=== PATIENT | female | born 1970 | race Caucasian/White ===

== ENCOUNTER → 2017-07-05 | Outpatient (CLI) | payer OTHER, BC ==
[~2017-07-05] MED LIST: ASPIRIN ADULT L81 M1 PO; KROGER NIC21 MG/24 H TD; MOTRIN800 MG PO; NITROSTAT0.4 MG SL; NKHM; PERCOCET 325 MG1 TA2 PO; SIMVASTATIN20 MG PO
== END | disposition home or self-care (01) ==
LOC: MAMMO 15:30
DX: Z12.31 Encounter for screening mammogram for malignant neoplasm of breast (principal)

== ENCOUNTER → 2018-06-13 | Outpatient (CLI) | payer OTHER, BC | END | disposition home or self-care (01) | LOC: MAMMO 15:25 | DX: Z12.31 Encounter for screening mammogram for malignant neoplasm of breast (principal) ==

== ENCOUNTER → 2019-12-31 | Outpatient (CLI) | payer OTHER | END | disposition home or self-care (01) | LOC: MAMMO 14:05 | PROVIDERS: ATTEND Nurse Practitioner Family | DX: Z12.31 Encounter for screening mammogram for malignant neoplasm of breast (principal) ==

== ENCOUNTER → 2020-11-28 | Outpatient (CLI) | payer OTHER ==
[~2020-11-28] MED LIST changes: +PRALUENT P150 MG/1 M SQ
== END | disposition home or self-care (01) ==
LOC: CARD 00:01
PROVIDERS: ATTEND Nurse Practitioner Family
DX: I20.8 Other forms of angina pectoris (principal)

== ENCOUNTER → 2022-02-23 | Outpatient (CLI) | payer OTHER | END | disposition home or self-care (01) | LOC: MAMMO 12:25 | PROVIDERS: ATTEND Internal Medicine | DX: N63.15 Unspecified lump in the right breast, overlapping quadrants (principal); N60.01 Solitary cyst of right breast; N63.11 Unspecified lump in the right breast, upper outer quadrant; R92.2 Inconclusive mammogram; N63.41 Unspecified lump in right breast, subareolar ==

== ENCOUNTER → 2022-08-31 | Outpatient (CLI) | payer OTHER | END | disposition home or self-care (01) | LOC: MAMMO 08-19 13:30 → US 08-19 14:00 → MAMMO 00:49 | PROVIDERS: ATTEND Internal Medicine | DX: N63.41 Unspecified lump in right breast, subareolar (principal); N63.11 Unspecified lump in the right breast, upper outer quadrant; R92.2 Inconclusive mammogram; R92.8 Other abnormal and inconclusive findings on diagnostic imaging of breast ==

== ENCOUNTER → 2024-02-27 | Outpatient (CLI) | payer OTHER | END | disposition home or self-care (01) | LOC: MAMMO 08:57 | PROVIDERS: ATTEND Internal Medicine | DX: Z12.31 Encounter for screening mammogram for malignant neoplasm of breast (principal); R92.323 Mammographic fibroglandular density, bilateral breasts; R92.333 Mammographic heterogeneous density, bilateral breasts ==